=== PATIENT | male | born 1995 | race Caucasian/White ===

== ENCOUNTER → 2018-12-01 07:58 | Outpatient (CLI) | payer MEDICAID, SELFPAY ==
[2018-05-25 11:58] VITALS: BMI 27.6
--- NOTE | 2018-12-01 07:59 | RAD_ITS ---
STUDY: X-RAY - RIGHT ANKLE REASON FOR EXAM: Male, 23 years old. Pain and swelling following twisting injury. TECHNIQUE: 3 view(s) of the ankle. COMPARISON: None. FINDINGS: Normal visualized distal tibia and fibula. Normal medial and lateral malleoli. Normal tibiotalar articulation and ankle mortise. Normal visualized talus and calcaneus. The visualized subtalar, talonavicular, calcaneocuboid and tarsal articulations are normal. The soft tissue structures are unremarkable. RAD/Ankle min 3 Views IMPRESSION: Normal x-ray examination of the ankle. Electronically Signed: Adolfo Whitehead, at 14:03 EDT , Service support ,
== END ==
PROVIDERS: Family Provider Pediatrics; PCP Pediatrics; Referring Provider Physician Assistant; Visit Provider Physician Assistant
DX: S99.911A Unspecified injury of right ankle, initial encounter (principal)
CPT/HCPCS: 73610

== ENCOUNTER → 2019-04-07 08:51 | Outpatient (CLI) | payer MEDICAID, SELFPAY ==
[2019-03-22 09:09] VITALS: BMI 27.6
--- NOTE | 2019-04-07 08:53 | MRI_ITS ---
STUDY: MRI RIGHT ANKLE WITHOUT CONTRAST REASON FOR EXAM: Male, 23 years old. Chronic RIGHT ankle pain s/p rolling multiple times. Pain of entire right ankle joint TECHNIQUE: Standardized fat and water weighted pulse sequences were obtained in all 3 orthogonal planes. COMPARISON: X-ray December 01, 2018. FINDINGS: Normal subcutis adipose space. There is marrow edema of the medial malleolus of the distal tibia, series 5 images 16 and 17/30 Normal posterior tibialis tendon. Normal flexor digitorum longus tendon. Normal flexor hallucis longus tendon. Normal peroneus longus and brevis tendons. Normal tibialis anterior tendon. Normal extensor hallucis longus tendon. Normal extensor digitorum longus tendons. Normal Achilles tendon and teno-osseous insertion. Normal plantar fascia. Normal plantar calcaneal tubercles. Normal intrinsic muscles of the rearfoot. Normal distal tibiofibular syndesmotic ligamentous complex. Normal lateral ligamentous complex. Normal subtalar ligaments and sinus tarsi. There is interstitial edema within the tibiotalar ligamentous components of the deltoid ligamentous complex consistent with a partial deltoid ligamentous sprain. Normal plantar calcaneonavicular (spring) ligament. Mild spurring of the tibiotalar articulation. Normal talar dome. Normal subtalar articulations. Normal talonavicular articulation. Normal calcaneocuboid articulation. Normal navicular-cuneiform articulations. MRI/Lower Ext Joint Only (Routine) IMPRESSION: Bone bruise or stress injury of the medial malleolus of the distal tibia. Medial ankle sprain. No osteochondral injury of the talar dome. Electronically Signed: Jimbo Guzman MD at 10:53 EST , Service support ,
== END ==
PROVIDERS: Family Provider Family Medicine; PCP Family Medicine; Referring Provider Physician Assistant; Visit Provider Physician Assistant
DX: S93.401A Sprain of unspecified ligament of right ankle, initial encounter (principal)
CPT/HCPCS: 73721

== ENCOUNTER → 2019-04-24 09:28 | Outpatient (CLI) | payer MEDICAID, SELFPAY ==
[2019-04-24 08:51] VITALS: BMI 27.6
--- NOTE | 2019-04-24 09:28 | RAD_ITS ---
STUDY: X-RAY - RIGHT KNEE REASON FOR EXAM: Knee pain, ankle injury. TECHNIQUE: 4 view(s) of the knee. COMPARISON: None. FINDINGS: Normal visualized distal femur. Normal visualized proximal tibia and fibula. Normal proximal tibiofibular articulation. Normal medial femorotibial compartment. Normal lateral femorotibial compartment. Normal patellofemoral articulation. The soft tissue structures are unremarkable. RAD/Knee 4 or More Views IMPRESSION: Normal x-ray examination of the right knee. Electronically Signed: Josh Bauer MD at 13:18 EST Tel , Service support ,
== END ==
PROVIDERS: Family Provider Family Medicine; PCP Family Medicine; Referring Provider Orthopaedic Surgery; Visit Provider Orthopaedic Surgery
DX: S93.421D Sprain of deltoid ligament of right ankle, subsequent encounter (principal); F43.9 Reaction to severe stress, unspecified
CPT/HCPCS: 73564

== ENCOUNTER 2019-07-16 16:00 | Outpatient (RCR) | payer MEDICAID, SELFPAY ==
[2019-04-24 08:51] VITALS: BMI 27.6
--- NOTE | 2019-04-27 09:57 | HP.PTEVAL ---
Patient's Visit Information KIERSTEN PRESCOTT is a 23 year old M referred to Physical Therapy by Kim Keith DO with a diagnosis of R ankle sprain. Date of Evaluation: 04/27/19 Physical Therapist: Josh Hunt, PT, ATC - Visit Plan Frequency: 1x/Week Duration: 2 Weeks Plan: Follow up with pt in 6 weeks when he is FWB'ing in normal shoe. Cont with HEP until that date. - Subjective Findings: Pt reports he has had multiple ankle sprains over the years and finally wants to get his ankle stronger to avoid future episodes. Pt reports he last sprained his R ankle in the summer, and notes he performed ex's in an attempt to strengthen his ankle. Pt reports the pain never fully went away, and even now when he turns his foot a certain way, things get pinched in there and he has increased pain. Pt reports he still plays recreational basketball, but is unable to do so now because of his ankle pain. R ankle also hurts when he is squatting or jumping. No sleep difficulty secondary to pain. Pt reports he had xrays and MRI's. Pt is wearing a cam boot now to avoid future ankle injuries for 6 weeks. 0/10 pain at rest, 3/10 paiin at worst (squatting underneath his sink at home. - Pain R ankle Pain Intensity (Out of 10): 0 Pain Intensity Range: 3 - Objective Neuro: B LE sensation is WNL to light touch. Palpation: Pt is sore on the lateral malleolus of the R ankle. Minor swelling noted. ROM: L ankle DF= 10, PF= 50 degrees. R ankle DF= 6, PF= 40 degrees. MMT: L ankle 5/5 throughout. R ankle 4/5 and painful with testing. Girth: L ankle 58 cm, R ankle 59 cm - Goals Goal 1:: I with HEP Goal Time Frame: 6-8 Weeks - Rehabilitation Potential Physical Therapy Diagnosis: R ankle pain, weakness, and limited ROM secondary to chronic R ankle sprains Rehabilitation Potential: Good - Anticipated Interventions Patient/Client Instruction: Educate patient on: Condition, Plan of Care For the Purpose of:: To improve self management Therapeutic Exercise to Include: Strength training, Endurance training, Balance training, Flexibilty training, Gait and locomotor training, Active ROM For the Purpose of:: To decrease pain, To increase ROM, To improve muscle performance and motor function Cryotherapy (ice pack, ice massage): Yes For the Purpose of:: To decrease pain Thank you for the opportunity to evaluate your patient. For Medicare and Medicare HMO plans, please review the plan of care and approve it. It will need to be FAXED BACK to us at [phone] for Medicare purposes. For Medicare only, by signing this I certify the plan of care. Please let me know if there are questions or concerns regarding this plan of care. Physician Signature: Date:
--- NOTE | 2019-07-16 16:27 | HP.PTDCSUM ---
It has been my pleasure to treat KIERSTEN PRESCOTT referred by Dr. Kim Keith DO, with the diagnosis of R ankle sprain for a total of 7 visit(s). Discharge Date: Please see the following information for a summary of their discharge status. Subjective: No pain this date R ankle Pain Intensity (Out of 10): 0 % Improvement: 95 Objective/Function: R ankle strength: 5/5 throughout. R ankle ROM: DF= 10 degrees. R ankle pain: 0/10. I with HEP Goal 1:: I with HEP Goal Progress: Goal Met Plan: Discharge If there are questions or concerns regarding this patient's physical therapy, please feel free to call me at [phone]. Thank you for the referral of this patient. Sincerely, Josh Hunt, PT, ATC
== END 2019-07-16 19:00 | disposition home or self-care (01) ==
LOC: PT 16:00
PROVIDERS: Family Provider Family Medicine; PCP Family Medicine; Referring Provider Orthopaedic Surgery; Visit Provider Orthopaedic Surgery
DX: S99.811D Other specified injuries of right ankle, subsequent encounter (principal); S93.421D Sprain of deltoid ligament of right ankle, subsequent encounter
CPT/HCPCS: 97110; 97161; 97164

== ENCOUNTER → 2019-10-23 14:53 | Outpatient (CLI) | payer MEDICAID, SELFPAY ==
[2019-10-23 14:50] VITALS: BMI 27.6
--- NOTE | 2019-10-23 14:53 | RAD_ITS ---
STUDY: X-RAY - PELVIS AND LEFT HIP REASON FOR EXAM: Left hip pain, no specific injury. TECHNIQUE: 2 views of the pelvis and hip. COMPARISON: None. FINDINGS: Normal visualized soft tissue structures. Normal bilateral iliac wings, sacroiliac joints and visualized sacrum. Normal bilateral superior and inferior pubic rami. Normal pubic symphysis. Normal bilateral ischial tuberosities. Normal visualized femoral head. Normal acetabulum. Normal hip joint. RAD/HIP, UNI W/ Pelvis 2-3 Views IMPRESSION: Normal x-ray examination of the pelvis and left hip. Electronically Signed: Josh Bauer MD at 15:15 EDT Tel , Service support ,
== END ==
PROVIDERS: PCP Family Medicine; Referring Provider Orthopaedic Surgery; Visit Provider Orthopaedic Surgery
DX: M25.552 Pain in left hip (principal)
CPT/HCPCS: 73502

== ENCOUNTER 2019-11-13 12:30 | Outpatient (RCR) | payer MEDICAID, SELFPAY ==
[2019-10-23 14:50] VITALS: BMI 27.6
--- NOTE | 2019-10-29 08:59 | HP.PTEVAL ---
Patient's Visit Information KIERSTEN PRESCOTT is a 23 year old M referred to Physical Therapy by Dr. Kim Keith DO with a diagnosis of Left ITB Syndrom- Extn Snapping Hip, GT Bursititis. Date of Evaluation: 10/29/19 Physical Therapist: Sushila Cochran DPT - Visit Plan Frequency: 3x /Week Duration: 4 Weeks Plan: Focus on core strength/stabilization. HEP issued 10/29/2019: SLS with ball toss focus on core s/s and pelvic stability, clams, prone hip extension, firehydrants, hamstring stretch - Subjective Patient reports left hip pain- after he works out and when he is walking his hip is popping, snapping and it hurts. Insidious onset. Pain is located on the outside of the hip- No radiating pain. Describes the pain as dull and achy. The pain has slowly gotten better. Worst: 5/10 Best: 0/10 Eases: rest for 2 days. Agg: running any distance- more so outside on uneven surfaces- 3 miles. Does not run very often but he normally runs a mile when he works out- but when the shutdown happened he increased his miles. Curent workout- [employer] [facility]- 2 min of walking on TM then 8 min of jogging- legs or upper body machines- 3x a week. Sleep: not disturbed- but when its active its annoying to try to fall asleep- most comfortable position is [place]. Has never had back problems before. Had x-rays taken but were negative. 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 PMHx: anxiety Meds: Zoloft - Objective Posture: FH, RS- can correct with verbal cues but does not maintain. Gait: no deviation noted with walking but with running he has increased hip sway bilaterally with drop. HR/TR: able. SLS: left-hip drop- instability- 10 sec then LOB. ROM: WNL in all planes. Strength: Core: fair minus, Hip: 4/5, Knee: 5/5, Ankle: 5/5, Clam: 4/5. Flex: HS moderate, Gastroc: moderate. Special Test: SHELBY: negative, Scour: negative, LLD: negative. Palpation: tender along lateral ITBand and into the greater troch - Goals Goal 1:: Patient will be I with HEP and progression Goal Time Frame: 4-6 Weeks Goal 2:: Patient will SLS for 30 sec without LOB, pelvis instability and hip drop Goal Time Frame: 4-6 Weeks Goal 3:: Patient will maintain proper posture t/o tx session to demo increased core s/s Goal Time Frame: 4-6 Weeks - Rehabilitation Potential Physical Therapy Diagnosis: Patient presents with hypomobility- he has decreased strength, flex and muscular endurance leading to poor balance and decreased ability to peform painfree recreational/ADL's. Rehabilitation Potential: Good - Anticipated Interventions Patient/Client Instruction: Educate patient on: Benefits of Fitness Program Therapeutic Exercise to Include: Strength training, Endurance training, Balance training, Agility training, Body mechanics, Postural training, Flexibilty training, Gait and locomotor training, Neuromotor development, Passive ROM, Active ROM, Dynamic Lumbar Stabilization, Scapular Strength/Stabilization For the Purpose of:: To improve muscle performance and motor function Thank you for the opportunity to evaluate your patient. For Medicare and Medicare HMO plans, please review the plan of care and approve it. It will need to be FAXED BACK to us at [phone] for Medicare purposes. For Medicare only, by signing this I certify the plan of care. Please let me know if there are questions or concerns regarding this plan of care. Physician Signature: Date:
--- NOTE | 2020-01-14 16:24 | HP.PT.NRP ---
KIERSTEN PRESCOTT was seen in my office for initial evaluation on 10/29/19. The following Plan of Care was established for this patient: Initial Frequency: 3x /Week Initial Duration: 4 Weeks Patient/Client Instruction: Educate patient on: Benefits of Fitness Program Therapeutic Exercise to Include: Strength training, Endurance training, Balance training, Agility training, Body mechanics, Postural training, Flexibilty training, Gait and locomotor training, Neuromotor development, Passive ROM, Active ROM, Dynamic Lumbar Stabilization, Scapular Strength/Stabilization For the Purpose of:: To improve muscle performance and motor function This patient was last seen in our office . Pertinent comments regarding their Physical therapy will appear below: Patient has not returned to PT in over 6 weeks- appropriate for d/c and return to MD for further evaluation as needed. At this point I will be discontinuing this patient from physical therapy. I would be happy to see this patient again in the future if found appropriate by the physician. Thank you! Sushila Cochran DPT
== END 2019-11-13 19:00 | disposition home or self-care (01) ==
LOC: PT 12:30
PROVIDERS: PCP Family Medicine; Referring Provider Orthopaedic Surgery; Visit Provider Orthopaedic Surgery
DX: M76.32 Iliotibial band syndrome, left leg (principal)
CPT/HCPCS: 97110; 97161

== ENCOUNTER 2025-04-09 10:00 | Emergency (ER) | payer OTHER, SELFPAY ==
[2025-04-09 10:01] VITALS: BP 165/88; PULSE 123; RESP 18; TEMP 36.8; O2SAT 98; BMI 30.1
--- NOTE | 2025-04-09 10:30 | RAD_ITS ---
PROCEDURE: CHEST 1 VIEW (PORTABLE) 04/09/2025 REASON FOR EXAM: CHEST PAIN TECHNIQUE: Frontal view of the chest. COMPARISON: 04/09/2025 FINDINGS: Lungs: Lungs clear of pneumonia and congestion. Pleura: No pleural effusions, thickening, or pneumothorax. Heart: Normal in size and configuration. Mediastinum/Ivanna: Unremarkable. Great vessels: Unremarkable. Bones/soft tissues: Unremarkable. Cardiac monitoring leads overlie the chest wall. RAD/Chest 1 View (Portable) IMPRESSION: No active cardiopulmonary disease. Reading Location: [place] [address]
--- NOTE | 2025-04-09 10:30 | EKG12_ITS ---
Test Reason : CP Blood Pressure : */* mmHG Vent. Rate : 115 BPM Atrial Rate : 115 BPM P-R Int : 166 ms QRS Dur : 108 ms QT Int : 322 ms P-R-T Axes : 63 79 4 degrees QTcB Int : 445 ms Sinus tachycardia Otherwise normal ECG Confirmed by Yifan Cho ([id number]), medical editor CUAUHTEMOC DYSON ([id number]) on 04/12/2025 8:18:40 AM Referred By: TIFFANIE/ELVER Confirmed By: Yifan Cho
--- NOTE | 2025-04-09 10:31 | EDS_ITS ---
HPI History of Present Illness Chief Complaint: Chest Pain Informant: patient Narrative Narrative: 29-year-old male presenting to the emergency room chief complaint of chest pain. Patient states that for the week he has had a chest heaviness located mostly on the left side of his chest. He states it does move around sometimes on the right but mostly on the left. States that it is in different positions on the left. Not positional in nature. He states that he saw a nurse practitioner at the end of last week and restarted on Prozac at a concern for anxiety. Over the weekend developed paresthesias in the left arm she states it starts mid biceps it is circumferential down to his fingertips. He denies any leg symptoms. He went back and saw a nurse practitioner again today and noted that his heart rate was elevated in the 120s and was concern for pulmonary embolism. Patient has no history of DVT or PE. He denies any known cardiac risk factors. He denies any neck pain. No fevers chills cough. He has not used much caffeine if at all. He states currently his chest discomfort is located just underneath the left pectoralis muscle. He states the muscle does not feel sore or painful. PFSH PFS Home Medications ?Medication ?Instructions ?Recorded ?Last Taken ?Type NK 06/28/24 Unknown History Allergy/AdvReac Type Severity Reaction Status Date / Time No Known Allergies Allergy Verified 04/09/25 10:03 Surgical History Hx of LASIK Social History Smoking Status: Never smoker ROS ROS ED Constitutional Constitutional ED: Denies chills or weight loss Eyes Eyes: Denies change in vision or diplopia ENT ENT ED: Denies ear pain, rhinorrhea or sore throat Cardiovascular Cardiovascular: Reports as per HPI and chest pain; Denies orthopnea, palpitations or racing heartbeat Respiratory/Chest Respiratory/Chest: Denies cough, dyspnea or orthopnea Gastrointestinal Gastrointestinal: Denies abdominal pain, diarrhea, nausea or vomiting Genitourinary Genitourinary ED: Denies dysuria, hematuria or urinary frequency Musculoskeletal Musculoskeletal: Denies arthralgias or myalgias Integumentary Denies abscess or rash Neurologic Neurologic: Reports paresthesias LUE; Denies headache(s) or weakness Psychiatric Psychiatric: Denies anxiety, depression, suicidal ideation or suicidal thoughts Endocrine Endocrinology: Denies polydipsia, polyphagia or polyuria Allergic/Immunologic Allergic/Immunologic ED: Denies mouth swelling, tongue swelling or urticaria EXAM Physical Exam Const Vital Signs: 04/09/25 10:01 04/09/25 10:06 04/09/25 11:06 Temperature 98.2 F Temperature Source Oral Pulse Rate 123 H 107 H Respiratory Rate 18 12 Respiratory Effort Normal Blood Pressure 165/88 H 132/83 H Blood Pressure Mean 113 99 Pulse Ox 98 100 Oxygen Delivery Method Room Air Room Air 04/09/25 11:48 Temperature 98.2 F Temperature Source Pulse Rate 97 Respiratory Rate 15 Respiratory Effort Blood Pressure 145/89 H Blood Pressure Mean 107 Pulse Ox 96 Oxygen Delivery Method Positive well nourished and well developed General Appearance ED: well developed and NAD HEENT Reports normocephalic, head/scalp atraumatic and moist mucous membranes Eyes PERRL and EOMs intact bilaterally Neck no lymphadenopathy, supple and no JVD Chest Wall inspection of chest normal and palpation of chest normal Resp normal respiratory effort and clear to auscultation bilaterally Cardio regular rate, regular rhythm and no murmurs Peripheral Pulses: pulses 2+ throughout GI normal to inspection, nondistended, normoactive bowel sounds and non-tender Palpation: soft Back/Spine no CVA tenderness and normal ROM Extremity normal to inspection General Extremety ED: Negative for edema General Extremity: Negative for edema Neuro oriented x3 and CN's II-XII intact bilaterally Sensorium / Orientation: alert Motor Exam: strength 5/5 throughout Psych mental status grossly normal Mood & Affect: Negative for depressed or tearful Skin no rashes or lesions noted and no wounds MDM MDM MDM Narrative Medical decision making narrative: Differential diagnosis includes cardiac dysrhythmia electrolyte abnormalities anxiety pulmonary embolism pneumonia effusion congestive heart failure EKG demonstrates a sinus tachycardia at a rate of 115. My independent interpretation of the chest x-ray is no acute process. Basic blood work essentially negative. Normal sodium potassium magnesium. Troponin is less than 6 D-dimer is less than 0.27. Hemoglobin 16.2. On the monitor the patient's heart rate has come down into the 90s. Remains in a sinus rhythm. Patient will be discharged home instructions to continue the Paxil that he restarted. He understands return instructions History & Record Review Discussion w/independent historian: Patient and Family Lab Data Attestation: I reviewed the patient's lab results. Labs: Laboratory Results - last 24 hr 04/09/25 10:15 WBC 7.0 RBC 5.68 Hgb 16.2 Hct 46.8 MCV 82.4 MCH 28.5 MCHC 34.6 RDW Std Deviation 35.6 RDW Coeff of Shelia 11.9 Plt Count 238 MPV 10.2 Immature Gran % (Auto) 0.100 Neut % (Auto) 71.8 H Lymph % (Auto) 21.1 Conway % (Auto) 6.3 Eos % (Auto) 0.4 Baso % (Auto) 0.3 Absolute Neuts (auto) 5.0 Absolute Lymphs (auto) 1.48 Nucleated RBC % 0 D-Dimer Quant (PE/DVT) < 0.27 L Sodium 141 Potassium 3.7 Chloride 103 Carbon Dioxide 27.3 Anion Gap 11 BUN 15 Creatinine 1.17 Estim Creat Clear Calc 109.86 Est GFR (MDRD) Non-Af 88 BUN/Creatinine Ratio 13.0 Glucose 94 Calcium 9.9 Magnesium 2.1 Troponin T High Sens < 6 Radiography Diagnostic Testing: Clinical Impression(s) from Imaging Studies Chest X-Ray 04/09/25 10:30 IMPRESSION: No active cardiopulmonary disease. Reading Location: [place] [address] Discharge Plan Triage Chief Complaint: Chest Pain ED Provider: [facility] Dx/Rx/DC Orders Clinical Impression: Sinus tachycardia, Paresthesia, Chest pain, Elevated blood pressure reading Instructions: Understanding Tachycardia, ED Chest Pain, Noncardiac, ED Hypertension, To Be Confirmed, ED Paresthesia Prescriptions: No Action NK Primary Care Provider: Forrest Jiang Referrals: Forrest Jiang MD [Primary Care Provider, Family Practice] - 1-2 Weeks Print Language: Citizen Of [place] Disposition Disposition: Home, Self Care Discharge Date/Time: 04/09/25 11:49
[2025-04-09 10:41] LABS: Hematocrit 46.8 % (40-54); Hemoglobin 16.2 g/dL (13.0-16.5); Immature Granulocytes Count 0.010 X10^3/uL (0.0-0.0); Mean Corp Hgb Conc 34.6 g/dL (32-36); Mean Corpuscular Volume 82.4 fL (80-94); Mean Platelet Vol. 10.2 fl (6.2-12.0); NRBC Flagged by Analyzer 0 % (0-5); Platelet Count 238 K/mm3 (150-450); RBC Distribution Width CV 11.9 % (11.6-14.6); RBC Distribution Width SD 35.6 fl (35.1-43.9); Red Blood Count 5.68 M/mm3 (4.6-6.2); White Blood Count 7.0 K/mm3 (4.4-11.0)
[2025-04-09 10:53] LABS: D-Dimer Quantitative (DVT/PE) < 0.27 FEU/ug/m (0.27-0.49)
[2025-04-09 11:06] VITALS: BP 132/83; PULSE 107; RESP 12; O2SAT 100
[2025-04-09 11:16] LABS: Anion Gap 11 (7-18); BUN 15 mg/dL (4-19); BUN/Creat Ratio 13.0 RATIO (10-20); Calcium,Total 9.9 mg/dL (7.6-11.0); Carbon Dioxide 27.3 mmol/L (20.0-29.0); Chloride 103 mmol/L (96-106); Estimated Creatinine Clearance 109.86 ml/min (50-250); Glucose 94 mg/dL (70-99); Magnesium 2.1 mg/dL (1.5-2.2); Potassium 3.7 mmol/L (3.5-5.1); Troponin T High Sensitivity < 6 ng/L (<=22)
[2025-04-09 11:48] VITALS: BP 145/89; PULSE 97; RESP 15; TEMP 36.8; O2SAT 96
== END 2025-04-09 11:49 | disposition home or self-care (01) ==
PROVIDERS: Emergency Provider Emergency Medicine; PCP Family Medicine; Visit Provider Emergency Medicine
DX: R07.9 Chest pain, unspecified (principal); R00.0 Tachycardia, unspecified; R20.2 Paresthesia of skin; R03.0 Elevated blood-pressure reading, without diagnosis of hypertension
CPT/HCPCS: 71045; 80048; 83735; 84484; 85025; 85379; 93005; 99283; A4216